=== PATIENT | female | born 1975 | race Two or more races ===

== ENCOUNTER 2016-07-12 21:50 | Emergency (ER) | payer MEDICAID, OTHER ==
[~2016-07-12] VITALS: Ht 172.7 cm; Wt 104.0 kg
[~2016-07-12 21:50] MED LIST: ATEN50TA PO
[2016-07-12 23:10] VITALS: BP 158/100
[2016-07-12 23:37] LABS: BASOPHILS % 0.4 % (0.0-2.0); EOSINOPHILS % 1.7 % (0.0-5.0); HEMATOCRIT. 32.7 % (36.0-48.0); HEMOGLOBIN. 10.6 g/dL (12.0-16.0); LYMPHOCYTES % 28.6 % (20.0-50.0); MEAN CORPUSCULAR HEMOGLOBIN 22.3 pg (28.0-32.0); MEAN CORPUSCULAR VOLUME 68.6 fL (81.0-99.0); MEAN PLATELET VOLUME 8.7 fl (7.4-10.4); MONOCYTES % 7.7 % (2.0-8.0); NEUTROPHILS % 61.6 % (40.0-76.0); PLATELET 296 x1000/uL (130-400); RED BLOOD CELL COUNT 4.77 mill/uL (4.2-5.4)
[2016-07-12 23:38] LABS: CHLORIDE 102 mEq/L (98-107)
[2016-07-12 23:44] LABS: CLARITY URINE CLEAR (CLEAR); COLOR URINE YELLOW (YELLOW); GLUCOSE URINE NEGATIVE (NEGATIVE); KETONES URINE NEGATIVE (NEGATIVE); LEUKOCYTE ESTERASE URINE NEGATIVE (NEGATIVE); NITRITE URINE NEGATIVE (NEGATIVE); OCCULT BLOOD URINE 3+ (NEGATIVE); PROTEIN URINE NEGATIVE (NEGATIVE); SPECIFIC GRAVITY URINE 1.033 (1.005-1.030)
[2016-07-12 23:44] LABS: PLATELET ESTIMATE NORMAL
[2016-07-12 23:52] LABS: CARBON DIOXIDE 26 mEq/L (21-32)
[2016-07-13 00:01] LABS: B-HCG QUANTITATIVE 85121 mIU/mL (<3)
== END 2016-07-13 01:33 | disposition home or self-care (01) ==
LOC: ER 21:53
DX: O20.0 Threatened abortion (principal); F41.9 Anxiety disorder, unspecified; I10 Essential (primary) hypertension; G43.909 Migraine, unspecified, not intractable, without status migrainosus; F12.10 Cannabis abuse, uncomplicated; Z88.0 Allergy status to penicillin; Z79.899 Other long term (current) drug therapy; Z3A.08 8 weeks gestation of pregnancy
CPT/HCPCS: 36415; 76801; 80048; 81001; 81025; 84702; 85025; 86850; 86900; 99285

== ENCOUNTER 2016-12-02 08:54 | Observation (INO) | payer OTHER ==
[2016-12-02] MEDS ORDERED: PNV1TABL76 PO ×2 (10:23→10:25)
[2016-12-02] MEDS ORDERED: LABE100T PO (10:25)
== END 2016-12-02 11:25 | disposition home or self-care (01) ==
LOC: L&D 08:54
PROVIDERS: ADMIT Obstetrics & Gynecology; ATTEND Obstetrics & Gynecology
DX: O26.893 Other specified pregnancy related conditions, third trimester (principal); R10.9 Unspecified abdominal pain; Z3A.37 37 weeks gestation of pregnancy
CPT/HCPCS: 99281; G0378